=== PATIENT | female | born 2000 | race Caucasian/White ===

== ENCOUNTER 2021-07-25 14:47 | Emergency (ER) | payer BC, SELFPAY ==
--- NOTE | ~2021-07-25 | US_ITS ---
EXAMINATION: US PELVIS CLINICAL INFORMATION: Severe pelvic pain. Evaluate for torsion. COMPARISON: None TECHNIQUE: Ultrasound of the pelvis is performed using both transabdominal and transvaginal transducers along with Doppler. Transvaginal imaging is performed due to inadequate visualization transabdominally. FINDINGS: Uterus: The uterus is anteverted and measures 6.0 x 2.9 x 4.2 cm. The double wall endometrial thickness is 4 mm. The uterus is smooth in contour and has normal myometrial echogenicity. No visible fibroid. Adnexa: Right ovary measures 2.5 x 1.3 x 1.8 cm with a volume of 3.1 mL. Arterial and venous waveforms are demonstrated. No adnexal mass. The left ovary measures 2.2 x 1.7 x 1.5 cm with a volume of 2.9 mL. Arterial and venous waveforms are demonstrated. No adnexal mass. No evidence of active ovarian torsion. No free fluid in the cul-de-sac. US/US pelvic and transvaginal IMPRESSION: Unremarkable pelvic ultrasound. No evidence of active ovarian torsion.
--- NOTE | ~2021-07-25 | US_ITS ---
EXAMINATION: US PELVIS CLINICAL INFORMATION: Severe pelvic pain. Evaluate for torsion. COMPARISON: None TECHNIQUE: Ultrasound of the pelvis is performed using both transabdominal and transvaginal transducers along with Doppler. Transvaginal imaging is performed due to inadequate visualization transabdominally. FINDINGS: Uterus: The uterus is anteverted and measures 6.0 x 2.9 x 4.2 cm. The double wall endometrial thickness is 4 mm. The uterus is smooth in contour and has normal myometrial echogenicity. No visible fibroid. Adnexa: Right ovary measures 2.5 x 1.3 x 1.8 cm with a volume of 3.1 mL. Arterial and venous waveforms are demonstrated. No adnexal mass. The left ovary measures 2.2 x 1.7 x 1.5 cm with a volume of 2.9 mL. Arterial and venous waveforms are demonstrated. No adnexal mass. No evidence of active ovarian torsion. No free fluid in the cul-de-sac. US/US pelvic ovarian doppler IMPRESSION: Unremarkable pelvic ultrasound. No evidence of active ovarian torsion.
[2021-07-25 15:40] VITALS: BP 117/55; PULSE 88; RESP 18; TEMP 36.6; O2SAT 100; BMI 20.9
[2021-07-25 16:01] LABS: MANUAL DIFF FLAG NO
[2021-07-25 16:02] LABS: Basophils Percent Auto 0.2 % (0-2); Eosinophils Absolute Auto 0.1 X10*3/uL (0.0-0.4); Eosinophils Percent Auto 0.8 % (0-4); Hematocrit 36.6 % (37.0-47.0); Hemoglobin 12.3 g/dl (12.0-16.0); Imm Gran Abs Auto 0.02 X10*3/uL (0.00-0.03); Imm Gran Pct Auto 0.2 % (0.0-0.4); Lymphocytes Absolute Auto 0.8 X10*3/uL (1.2-4.9); Lymphocytes Percent Auto 9.4 % (20-40); Mean Corpuscular HGB Conc 33.6 g/dl (31.0-35.0); Mean Corpuscular Hemoglobin 31.9 pg (27.0-33.0); Mean Corpuscular Volume 94.8 fL (80.0-98.0); Mean Platelet Volume 8.6 fL (9.4-12.3); Monocytes Absolute Auto 0.4 X10*3/uL (0.1-1.2); Monocytes Percent Auto 4.2 % (2-11); Neutrophils Absolute Auto 7.7 x10*3/uL (2.0-8.3); Neutrophils Percent Auto 85.2 % (45-73); Platelet Count 212 X10*3/uL (160-400); Red Blood Count 3.86 X10*6/uL (4.20-5.50); Red Cell Distribution Width 11.9 % (11.0-16.0)
[2021-07-25 16:20] LABS: Alanine Aminotransferase 19 U/L (0-31); Albumin Level 4.2 g/dL (3.5-5.0); Alkaline Phosphatase 62 U/L (39-117); Anion Gap 13 (12-20); Aspartate Amino Transferase 19 U/L (5-31); Bilirubin Total 0.6 mg/dL (0.0-1.0); Blood Urea Nitrogen 9 mg/dL (9-16); Calcium 9.5 mg/dL (8.4-10.2); Carbon Dioxide 26 mmol/L (22-29); Chloride 105 mmol/L (96-108); Creatinine Clr Calc Pharmacy 129.1; Estimated Glomerular Filt Rate > 60; Glucose Random 134 mg/dL (60-115); Potassium 4.6 mmol/L (3.3-5.1); Sodium 139 mmol/L (135-145)
[2021-07-25 19:12] LABS: HCG Quantitative < 2 mIU/mL
[2021-07-25 19:16] LABS: Lipase 17 U/L (8-78)
[2021-07-25 20:30] VITALS: BP 110/56; PULSE 59; RESP 12; O2SAT 100
--- NOTE | 2021-07-25 21:09 | ED.FEMALEGU ---
HPI - Female Genitourinary General Chief complaint: Urogenital-Female Stated complaint: severe crampy nausea Time Seen by Provider: 07/25/21 18:37 Source: patient Mode of arrival: ambulatory Limitations: no limitations Related Data Allergies Allergy/AdvReac Type Severity Reaction Status Date / Time desvenlafaxine [From Pristiq] Allergy Unknown Verified 07/25/21 15:44 [facility] Past Medical History Medical History (Updated 07/25/21 @ 22:10 by Zechariah Agrawal MD) Depression Social History Social History Advance Directives: No Patient : No Physical Exam Vital Signs: Vital Signs: Last Vital Signs Temp 97.8 F 07/25/21 15:40 Pulse 59 07/25/21 20:30 Resp 12 07/25/21 20:30 BP 110/56 L 07/25/21 20:30 Pulse Ox 100 07/25/21 20:30 BMI result Body Mass Index 20.9 MDM - Female Genitourinary Lab Data Result diagrams: 07/25/21 15:56 07/25/21 15:56 Labs: Lab Results 07/25/21 07/25/21 Range/Units 15:56 15:56 WBC 9.0 (4.8-10.8) X10*3/uL RBC 3.86 L (4.20-5.50) X10*6/uL Hgb 12.3 (12.0-16.0) g/dl Hct 36.6 L (37.0-47.0) % MCV 94.8 (80.0-98.0) fL MCH 31.9 (27.0-33.0) pg MCHC 33.6 (31.0-35.0) g/dl RDW 11.9 (11.0-16.0) % Plt Count 212 (160-400) X10*3/uL MPV 8.6 L (9.4-12.3) fL Immature Gran % (Auto) 0.2 (0.0-0.4) % Neut % (Auto) 85.2 H (45-73) % Lymph % (Auto) 9.4 L (20-40) % [place] % (Auto) 4.2 (2-11) % Eos % (Auto) 0.8 (0-4) % Baso % (Auto) 0.2 (0-2) % Lymph # (Auto) 0.8 L (1.2-4.9) X10*3/uL [place] # (Auto) 0.4 (0.1-1.2) X10*3/uL Eos # (Auto) 0.1 (0.0-0.4) X10*3/uL Baso # (Auto) 0.0 (0.0-0.2) X10*3/uL Abs Immat Gran (auto) 0.02 (0.00-0.03) X10*3/uL Absolute Neuts (auto) 7.7 (2.0-8.3) x10*3/uL Absolute Nucleated RBC 0.000 (0.0-0.012) X10*3/uL Nucleated RBC % (auto) 0.0 (0.0-0.2) /100WBC Sodium 139 (135-145) mmol/L Potassium 4.6 (3.3-5.1) mmol/L Chloride 105 (96-108) mmol/L Carbon Dioxide 26 (22-29) mmol/L Anion Gap 13 (12-20) BUN 9 (9-16) mg/dL Creatinine 0.74 (0.5-1.4) mg/dL Estim Creat Clear Calc 129.1 Estimated GFR > 60 Random Glucose 134 H (60-115) mg/dL Calcium 9.5 (8.4-10.2) mg/dL Total Bilirubin 0.6 (0.0-1.0) mg/dL AST 19 (5-31) U/L ALT 19 (0-31) U/L Alkaline Phosphatase 62 (39-117) U/L Total Protein 7.0 (6.5-8.0) g/dL Albumin 4.2 (3.5-5.0) g/dL Lipase 17 (8-78) U/L Beta HCG, Quant < 2 mIU/mL Discharge Plan Discharge Clinical Impression: Painful menstrual periods Patient Disposition: Home, Self-Care Instructions: Dysmenorrhea (ED) Additional Instructions: Your laboratory evaluation was unremarkable. Your test was negative. The Doppler ultrasound of your pelvis revealed no ovarian cysts, no evidence for ovarian torsion or other abnormalities to explain your pain. Your pelvic exam revealed a normal appearing cervix with some blood in the cervix and vagina consistent with your menses. You did have tenderness with palpation of your cervix but I do not think that it was severe and I do not think that you have cervicitis or pelvic inflammatory disease. At this time, I believe that the severe pain and other symptoms that you had were caused by your menstrual cramps. Take ibuprofen 200 mg pills, 3 pills every 6 hours as needed for pain. Take Tylenol (acetaminophen) 500 mg pills, 2 pills every 4 to 6 hours as needed for pain. Follow-up with [facility] for re-evaluation Your urine was tested for gonorrhea and chlamydia, you should check this result with health services or on the patient portal. If any of these test are positive then you will need antibiotics.. Please return to the emergency department if your symptoms get worse or if you develop any symptoms that are concerning to you.
[2021-07-25 22:06] LABS: Appearance Urine CLEAR; Color Urine STRAW; Glucose Urine UA NEG (NEG); Leukocyte Esterase Urine TRACE (NEG); Nitrite Urine NEG (NEG); PH 6.5 (5.0-8.0); Specific Gravity - Urine <= 1.005 (1.005-1.025); UACC Culture Trigger YES; Urine Blood 1+ (NEG); Urine Ketones NEG (NEG); Urine Protein NEG (NEG-TRACE)
[2021-07-25 22:11] LABS: UPreg QC Valid YES; Urine Pregnancy NEGATIVE (NEGATIVE)
[2021-07-25] MEDS: Ibuprofen 600 MG TABLET PO (22:20)
[2021-07-25 22:25] LABS: RBC Urine 0-2 /HPF (0); Renal Epithelial Cells Urine 1+ /LPF; Squamous Epithelial Cell Urine 1+ /LPF
--- NOTE | 2021-07-25 23:15 | ED_ITS ---
HPI - Female Genitourinary General Chief complaint: Urogenital-Female Stated complaint: severe crampy nausea Time Seen by Provider: 07/25/21 18:37 Source: patient Mode of arrival: ambulatory Limitations: no limitations History of Present Illness HPI Narrative: This chart is for the patient's visit on 07/25/2021 and is being completed on 11/19/2021 since the orginal record was only partially completed at the time of service. Please refer to the visit on 07/25/2021 for more details regarding the patients care 21 year old female who presents the emergency department for evaluation of severe abdominal pain and vaginal bleeding. The patient states that she developed vaginal bleeding this morning at 9 a.m. She also states that she developed severe cramping. The patient states that her menstrual period was 2 days late. She points to her lower abdomen when asked to localize this pain. The pain has been intermittent but severe in intensity 10 out of 10. She states that she developed sweats and shakes secondary to the severity of the pain.. She had nausea with no vomiting. She took ibuprofen 400mg with no relief of the pain. She then developed blurred vision and felt as if she was going to pass out. She had severe episodes of similar pain which got worse at around 2 pm. She does not take control pills. MD elicited complaint: vaginal bleeding and pelvic pain Location of symptoms: suprapubic, LLQ and RLQ Severity: severe Female Urogenital Radiation: Non-Radiating Severity scale (1-10): 10 Quality of pain: cramping Consistency: intermittent Vaginal discharge: none Vaginal bleeding: moderate Relieving factors: none Associated symptoms: abdominal pain, nausea and other (dizziness) Treatment prior to arrival: NSAIDs Sexual activity: Yes Possible : unsure if Related Data Allergies Allergy/AdvReac Type Severity Reaction Status Date / Time desvenlafaxine [From Pristiq] Allergy Unknown Verified 07/25/21 15:44 Review of Systems Review of Systems: Yes all other systems are reviewed and are negative [facility] Past Medical History [facility] Narrative: Past medical history: depression, anxiety. Past surgical history: none. Social history: she smokes cigarettes daily for 2 years. She occasionally drinks alcohol. She denies drug use. Medical History (Updated 07/26/21 @ 00:01 by Andrews Sal) Depression Social History Social History Advance Directives: No Patient : No Physical Exam Vital Signs: Vital Signs: Last Vital Signs Temp 97.8 F 07/25/21 15:40 Pulse 59 07/25/21 20:30 Resp 12 07/25/21 20:30 BP 110/56 L 07/25/21 20:30 Pulse Ox 100 07/25/21 20:30 O2 Del Method 07/25/21 20:30 BMI result Body Mass Index 20.9 Const: General: cooperative, alert, awake and acute distress (secondary to pain) Orientation/consciousness: oriented to person and oriented to place Limitations: no limitations HEENT: Head: Yes normal to inspection and Yes normocephalic Ears: external ears normal General nose exam: Normal external nose present Face and sinus: Yes normal facial exam Mouth: Normal oral and palatal mucosa present Throat: Yes posterior oropharynx normal Eyes: General: appearance normal, both eyes and all related structures Pupils: Equal, round and reactive pupils present Neck: Neck: Yes normal visual inspection and Yes no lymphadenopathy Chest: Chest palpation & inspection: normal inspection of the chest and normal palpation of entire chest wall Resp: Effort & Inspection: normal respiratory effort and able to speak in complete sentences Auscultation: clear to auscultation bilaterally Cardio: Rate: regular rate Rhythm: regular rhythm Heart sounds: S1 normal heart sound present, S2 normal heart sound present and no murmurs GI: Inspection: Yes normal to inspection Palpation (GI): Soft to palpation and Tenderness to palpation present (GI) in the LLQ (mild), in the RLQ (mild) and suprapubicly (moderate) : General: Yes no CVA tenderness External Female Exam: normal external appearance Speculum Exam - Vagina: normal appearance of the vagina and other (small amount of vaginal blood) Speculum Exam - Cervix: normal appearance of the cervix and Cervical tenderness present (mild) Bimanual exam- vagina & uterus: Cervical tenderness present (mild) and cervical motion tenderness (mild) Back/Spine/Pelvis: Back: no CVA tenderness Skin: General skin exam: no rashes or lesions noted Neuro: General: oriented to person, oriented to place and CN's II-XI intact bilaterally Cranial nerves: Yes Equal, round and reactive pupils present Cognition (Neuro): normal cognition Motor exam (neuro): 5/5 motor strength present throughout Psych: Appearance: grossly normal Mental Status: mental status grossly normal Speech and movement: Normal speech and movement present Course Course Course Narrative: 21 year old female who presents the emergency department for evaluation of severe abdominal pain and vaginal bleeding and near syncopal episode with symptoms starting at 9 am.The patient's physical examination did reveal moderate suprapubic tenderness and Mild right lower and left lower quadrant tenderness. The patient's laboratory evaluation revealed a normal CBC and CMP. The patient's quantitative beta HCG was below varitypist limits and the patient you're in test was also negative. urinalysis was unremarkable except for blood and trace leukocyte esterase and no evidence for urine tract infection. The patient also had a Doppler ultrasound to rule out ovarian cyst ovarian torsion in this was negative. The patient's presentations and findings are consistent with severe menstrual cramps causing near syncope. The patient was treated with ibuprofen 600 mg and dischaged to home with printed and verbal instructions [facility] - Female Genitourinary Lab Data Result diagrams: 07/25/21 15:56 07/25/21 15:56 Labs: Lab Results 07/25/21 07/25/21 07/25/21 Range/Units 15:56 15:56 21:55 WBC 9.0 (4.8-10.8) X10*3/uL RBC 3.86 L (4.20-5.50) X10*6/uL Hgb 12.3 (12.0-16.0) g/dl Hct 36.6 L (37.0-47.0) % MCV 94.8 (80.0-98.0) fL MCH 31.9 (27.0-33.0) pg MCHC 33.6 (31.0-35.0) g/dl RDW 11.9 (11.0-16.0) % Plt Count 212 (160-400) X10*3/uL MPV 8.6 L (9.4-12.3) fL Immature Gran % (Auto) 0.2 (0.0-0.4) % Neut % (Auto) 85.2 H (45-73) % Lymph % (Auto) 9.4 L (20-40) % [place] % (Auto) 4.2 (2-11) % Eos % (Auto) 0.8 (0-4) % Baso % (Auto) 0.2 (0-2) % Lymph # (Auto) 0.8 L (1.2-4.9) X10*3/uL [place] # (Auto) 0.4 (0.1-1.2) X10*3/uL Eos # (Auto) 0.1 (0.0-0.4) X10*3/uL Baso # (Auto) 0.0 (0.0-0.2) X10*3/uL Abs Immat Gran (auto) 0.02 (0.00-0.03) X10*3/uL Absolute Neuts (auto) 7.7 (2.0-8.3) x10*3/uL Absolute Nucleated RBC 0.000 (0.0-0.012) X10*3/uL Nucleated RBC % (auto) 0.0 (0.0-0.2) /100WBC Sodium 139 (135-145) mmol/L Potassium 4.6 (3.3-5.1) mmol/L Chloride 105 (96-108) mmol/L Carbon Dioxide 26 (22-29) mmol/L Anion Gap 13 (12-20) BUN 9 (9-16) mg/dL Creatinine 0.74 (0.5-1.4) mg/dL Estim Creat Clear Calc 129.1 Estimated GFR > 60 Random Glucose 134 H (60-115) mg/dL Calcium 9.5 (8.4-10.2) mg/dL Total Bilirubin 0.6 (0.0-1.0) mg/dL AST 19 (5-31) U/L ALT 19 (0-31) U/L Alkaline Phosphatase 62 (39-117) U/L Total Protein 7.0 (6.5-8.0) g/dL Albumin 4.2 (3.5-5.0) g/dL Lipase 17 (8-78) U/L Beta HCG, Quant < 2 mIU/mL Urine Color STRAW Urine Appearance CLEAR Urine pH 6.5 (5.0-8.0) Ur Specific [place] <= 1.005 (1.005-1.025) Urine Protein NEG (NEG-TRACE) MG/DL Urine Glucose (UA) NEG (NEG) MG/DL Urine Ketones NEG (NEG) MG/DL Urine Blood 1+ H (NEG) Urine Nitrite NEG (NEG) Ur Leukocyte Esterase TRACE H (NEG) Urine RBC 0-2 (0) /HPF Urine WBC 1-4 (0-4) /HPF Ur Squamous Epith Cells 1+ /LPF Ur Renal Epithelial Cell 1+ /LPF Urine Bacteria NONE /LPF Urine Test (NEGATIVE) Chlam trachomat DNA PCR (Not Detect.) N.gonorrhoeae DNA (PCR) (Not Detect.) 07/25/21 07/25/21 Range/Units 21:55 21:55 WBC (4.8-10.8) X10*3/uL RBC (4.20-5.50) X10*6/uL Hgb (12.0-16.0) g/dl Hct (37.0-47.0) % MCV (80.0-98.0) fL MCH (27.0-33.0) pg MCHC (31.0-35.0) g/dl RDW (11.0-16.0) % Plt Count (160-400) X10*3/uL MPV (9.4-12.3) fL Immature Gran % (Auto) (0.0-0.4) % Neut % (Auto) (45-73) % Lymph % (Auto) (20-40) % [place] % (Auto) (2-11) % Eos % (Auto) (0-4) % Baso % (Auto) (0-2) % Lymph # (Auto) (1.2-4.9) X10*3/uL [place] # (Auto) (0.1-1.2) X10*3/uL Eos # (Auto) (0.0-0.4) X10*3/uL Baso # (Auto) (0.0-0.2) X10*3/uL Abs Immat Gran (auto) (0.00-0.03) X10*3/uL Absolute Neuts (auto) (2.0-8.3) x10*3/uL Absolute Nucleated RBC (0.0-0.012) X10*3/uL Nucleated RBC % (auto) (0.0-0.2) /100WBC Sodium (135-145) mmol/L Potassium (3.3-5.1) mmol/L Chloride (96-108) mmol/L Carbon Dioxide (22-29) mmol/L Anion Gap (12-20) BUN (9-16) mg/dL Creatinine (0.5-1.4) mg/dL Estim Creat Clear Calc Estimated GFR Random Glucose (60-115) mg/dL Calcium (8.4-10.2) mg/dL Total Bilirubin (0.0-1.0) mg/dL AST (5-31) U/L ALT (0-31) U/L Alkaline Phosphatase (39-117) U/L Total Protein (6.5-8.0) g/dL Albumin (3.5-5.0) g/dL Lipase (8-78) U/L Beta HCG, Quant mIU/mL Urine Color Urine Appearance Urine pH (5.0-8.0) Ur Specific [place] (1.005-1.025) Urine Protein (NEG-TRACE) MG/DL Urine Glucose (UA) (NEG) MG/DL Urine Ketones (NEG) MG/DL Urine Blood (NEG) Urine Nitrite (NEG) Ur Leukocyte Esterase (NEG) Urine RBC (0) /HPF Urine WBC (0-4) /HPF Ur Squamous Epith Cells /LPF Ur Renal Epithelial Cell /LPF Urine Bacteria /LPF Urine Test NEGATIVE (NEGATIVE) Chlam trachomat DNA PCR NOT DETECTED (Not Detect.) N.gonorrhoeae DNA (PCR) NOT DETECTED (Not Detect.) Discharge Plan Discharge Clinical Impression: Painful menstrual periods Patient Disposition: Home, Self-Care Additional Instructions: Your laboratory evaluation was unremarkable. Your test was negative. The Doppler ultrasound of your pelvis revealed no ovarian cysts, no evidence for ovarian torsion or other abnormalities to explain your pain. Your pelvic exam revealed a normal appearing cervix with some blood in the cervix and vagina consistent with your menses. You did have tenderness with palpation of your cervix but I do not think that it was severe and I do not think that you have cervicitis or pelvic inflammatory disease. At this time, I believe that the severe pain and other symptoms that you had were caused by your menstrual cramps. Take ibuprofen 200 mg pills, 3 pills every 6 hours as needed for pain. Take Tylenol (acetaminophen) 500 mg pills, 2 pills every 4 to 6 hours as needed for pain. Follow-up with [facility] for re-evaluation Your urine was tested for gonorrhea and chlamydia, you should check this result with health services or on the patient portal. If any of these test are positive then you will need antibiotics.. Please return to the emergency department if your symptoms get worse or if you develop any symptoms that are concerning to you. Interventions: ED Discharge Assessment Last Done: 07/25/21 22:26 Discharge Date/Time: 07/25/21 22:27
[2021-07-26 00:57] LABS: CT PCR NOT DETECTED (Not Detect.); NG PCR NOT DETECTED (Not Detect.)
== END 2021-07-25 22:27 | disposition home or self-care (01) ==
PROVIDERS: Emergency Provider Emergency Medicine Emergency Medical Services
DX: N94.6 Dysmenorrhea, unspecified (principal); R10.2 Pelvic and perineal pain
CPT/HCPCS: 36415; 76830; 76856; 80053; 81001; 81025; 83690; 84702; 85025; 87086; 87491; 87591; 93975; 99283; 99284